=== PATIENT | male | born 1950 | race Caucasian/White ===

== ENCOUNTER → 2017-08-31 | Outpatient (CLI) | payer MEDICARE | LOC: RADMRIMAIN 06:52 | PROVIDERS: ATTEND Orthopaedic Surgery | DX: M25.561 Pain in right knee (principal); Z53.9 Procedure and treatment not carried out, unspecified reason ==

== ENCOUNTER → 2017-09-11 | Outpatient (CLI) | payer OTHER ==
--- NOTE | 2017-09-11 07:22 | MR ---
EXAMINATION TYPE: MR knee RT wo con DATE OF EXAM: 09/11/2017 6:49 AM COMPARISON: NONE HISTORY: Right knee pain TECHNIQUE: Multiplanar, multisequence imaging of the right is performed. FINDINGS: MEDIAL MENISCUS: Anterior and posterior horns are intact without tear. Increased signal posterior hor n medial meniscus may reflect myxoid degeneration. LATERAL MENISCUS: Anterior and posterior horns are intact without tear. CRUCIATE LIGAMENTS: The anterior and posterior cruciate ligaments are intact and unremarkable. COLLATERAL LIGAMENTS: The medial collateral ligament and lateral collateral ligament complex are intact and unremarkable. EXTENSOR MECHANISM: Visualized quadriceps and patellar tendons are intact. EFFUSION: No evidence for joint effusion. POPLITEAL CYST: No popliteal/ellis cyst. TRICOMPARTMENT SPACES: The tricompartment joint spaces appear within normal limits. CARTILAGE: Mild cartilaginous thinning lateral femoral condylar region. The articular cartilage is ma intained without abnormal signal or full-thickness defect. BONE MARROW SIGNAL: Increased bone marrow signal lateral femoral condyle and subchondral regions with cystic changes seen in degenerative in nature. OTHER: No additional significant abnormality is appreciated. IMPRESSION: 1. Myxoid degeneration posterior horn medial meniscus. 2. Subchondral cyst formation and increased bone marrow signal likely reflecting edema medial femoral condyle
== END | disposition home or self-care (01) ==
LOC: RADMRIMAIN 06:11
PROVIDERS: ATTEND Orthopaedic Surgery
DX: S83.241A Other tear of medial meniscus, current injury, right knee, initial encounter (principal); M25.861 Other specified joint disorders, right knee

== ENCOUNTER 2018-02-05 08:36 | Day surgery (SDC) | payer MEDICARE ==
[2018-02-01 16:04] VITALS: BMI 34.4
--- NOTE | 2018-02-04 10:01 | HP ---
HISTORY AND PHYSICAL CHIEF COMPLAINT: Right knee pain. HISTORY OF PRESENT ILLNESS: The patient is a 68-year-old retired gentleman who presents with progressive right knee pain after a previous twisting injury. He notes pain with weightbearing activities that limit him. He has swelling and stiffness as well. He has tried an injection along with rest and medications with only partial temporary relief. PAST MEDICAL HISTORY: Significant for type 2 diabetes, hypercholesterolemia, hypertension, arthritis, and neuropathy. PAST SURGICAL HISTORY: Significant for right knee arthroscopy. CURRENT MEDICATIONS: 1. Amitriptyline. 2. Amlodipine. 3. Aspirin. 4. Atorvastatin. 5. Glipizide. 6. Gabapentin. 7. Losartan. 8. Metoprolol. 9. Insulin. He denies drug allergies. FAMILY HISTORY: Significant for heart disease. SOCIAL HISTORY: Negative for current tobacco or alcohol use. 16 POINT REVIEW OF SYSTEMS: Otherwise reviewed and is noncontributory. PHYSICAL EXAMINATION: On examination, the patient is approximately 5 foot 10, 240 pounds of endomorphic habitus. HEENT exam is nonfocal. Neck is supple. He has painless passive motion of his left hip. Straight leg raise is negative. Active motion of left knee -14 to 105 degrees of flexion. He has a mild effusion. He is tender about the medial joint line. Collaterals are stable, Smiley's negative, Valentín's elicits medial pain. His distal neurovascular exam appears intact in the left lower extremity. MRI report left knee shows increased signal involving the posterior horn of the medial meniscus. Previous x-rays show moderate tricompartmental osteoarthrosis. IMPRESSION: 1. Internal derangement of left knee with probable medial meniscal tear-symptomatic. 2. Left knee moderate tricompartmental osteoarthrosis. 3. Neuropathy. 4. Insulin-dependent diabetes. RECOMMENDATIONS: I talked to the patient at length regarding his condition and treatment options. At this point he is quite symptomatic, having pain and mechanical symptoms despite conservative measures. After thorough discussion, he opts to proceed with surgery. We will plan to proceed with arthroscopic evaluation with possible partial medial meniscectomy versus medial femoral chondrectomy. Risks and benefits were discussed at length in layman's terms. MMODL / IJN: [id number] /
[~2018-02-05 08:36] MED LIST: LACTATED RINGERS 1,000 ML IV SCH; LIDOCAINE 1% 20 ML VIAL (10MG/ML) FOR IV START INTRADERMA PRN; ONDANSETRON 4 MG/2 ML VIAL IVP ONE; ceFAZolin IN SWFI 2 GM/20 ML SYRINGE IVP ONE
[2018-02-05 09:25] LABS: Glucose,Whole Blood 149 mg/dL (75-99)
[2018-02-05] MEDS ORDERED: ePHEDrine SULFATE/0.9% NACL/PF 50 MG/5 ML SYRINGE IV ONE (09:28)
[2018-02-05] MEDS ORDERED: MIDAZOLAM 2 MG/2 ML VIAL ONE (09:28)
[2018-02-05] MEDS ORDERED: PROPOFOL 10 MG/ML 20 ML VIAL IV ONE (09:28)
[2018-02-05] MEDS ORDERED: fentaNYL (PF) 50 MCG/ML 2 ML AMP ONE (09:28)
[2018-02-05] MEDS ORDERED: PHENYLEPHRINE-0.9% NACL SYG 1 MG/10 ML SYRINGE ONE (09:28)
[2018-02-05] MEDS ORDERED: SUCCINYLCHOLINE CHLORIDE 100 MG/5 ML SYR IV ONE (09:28)
[2018-02-05] MEDS ORDERED: LIDOCAINE 1% INJ 10MG/ML (20 ML MDV) ONE (09:28)
--- NOTE | 2018-02-05 09:28 | P.HPOR ---
History of Present Illness H&P Date: 02/05/18 Chief Complaint: Left knee pain As per previous history and physical. There was an error on the previous dictation, the left knee is the correct knee and the history and physical portion of the dictation. Past Medical History Past Medical History: Cancer, Diabetes Mellitus, Hypertension, Skin Disorder Additional Past Medical History / Comment(s): FOWLER'S ESOPHAGUS, DIABETIC NEUROPATHY PROSPER LEGS, constipation, "scalp infection", hx skin cancer, balance problems due to neuropathy, not bearing wt on left leg History of Any Multi-Drug Resistant Organisms: None Reported Past Surgical History: Bariatric Surgery, Orthopedic Surgery, Tonsillectomy Additional Past Surgical History / Comment(s): ARTHROSCOPY RT KNEE, lap band surgery, prosper cataracts, surgery to repair tendon left foot Past Anesthesia/Blood Transfusion Reactions: No Reported Reaction Smoking Status: Never smoker - Past Family History Mother Family Medical History: No Reported History Medications and Allergies Home Medications Medication Instructions Recorded Confirmed Type Amitriptyline HCl 25 mg PO HS 02/08/15 02/05/18 History Aspirin 81 mg PO DAILY 02/08/15 02/05/18 History Gabapentin 800 mg PO QID 02/08/15 02/05/18 History Metoprolol Succinate 25 mg PO QAM 02/08/15 02/05/18 History amLODIPine BESYLATE [Amlodipine 5 mg PO QAM 02/08/15 02/05/18 History Besylate] Atorvastatin [Lipitor] 20 mg PO HS 02/01/18 02/05/18 History Cholecalciferol [Vitamin D3] 1,000 unit PO DAILY 02/01/18 02/05/18 History INSULIN LISPRO (For Pump) [humaLOG 0.01 units SQ-PUMP CONTINUOUS 02/01/18 History (For Pump)] Losartan [Cozaar] 50 mg PO HS 02/01/18 02/05/18 History Minocycline HCl [Minocin] 50 mg PO 1200 02/01/18 02/05/18 History glipiZIDE XL [Glucotrol Xl] 10 mg PO HS 02/01/18 02/05/18 History Allergies Allergy/AdvReac Type Severity Reaction Status Date / Time No Known Allergies Allergy Verified 02/05/18 09:02 Results - Labs Labs: Abnormal Lab Results - Last 24 Hours (Table) 02/05/18 Range/Units 09:05 POC Glucose (mg/dL) 149 H (75-99) mg/dL Assessment and Plan Assessment: Left knee internal derangement Plan: Proceed with left knee arthroscopy was planned
[2018-02-05] MEDS ORDERED: EPINEPHrine (PF) 1 ML in SODIUM CHLORIDE 0.9% IRRIGATIO 3,000 ML IRRIGATION ONE ×4 (09:54)
--- NOTE | 2018-02-05 10:38 | P.OP ---
Date of Procedure: 02/05/18 Preoperative Diagnosis: Left knee internal derangement Postoperative Diagnosis: Left knee posterior medial meniscal tear/posterior lateral meniscal tear/large patellofemoral plica Procedure(s) Performed: Left knee arthroscopic partial medial meniscectomy/partial lateral meniscectomy/ plica resection Anesthesia: JORDANA Surgeon: Buddy Escamilla Estimated Blood Loss (ml): 10 Pathology: none sent Condition: stable Disposition: PACU Indications for Procedure: The patient is a 68-year-old male who presents with progressive left knee pain and mechanical symptoms despite conservative measures. A discussion of the risks and benefits of operative intervention versus continued conservative measures was made with patient. He opted to proceed with surgery. Operative risks to include infection, neurovascular injury, development of blood clots, possible incomplete resolution of symptoms, possible worsening symptoms and need for subsequent procedures was discussed. Informed consent was obtained. Operative Findings: As below Description of Procedure: The patient was brought to the operating room, and after induction of general anesthesia examined the left knee. Collaterals were stable, Smiley was negative, and posterior drawer was negative. The left lower extremity was prepped and draped in normal fashion. A superior lateral portal was made through a 3 mm skin incision superior and lateral to the patella. A moderate effusion was encountered. A lateral portal was made through a 5 mm vertical skin incision lateral to the patella tendon above the joint line. Diagnostic arthroscopy was performed. A medial portal was made through a similar incision medial to the patella tendon above the joint line. On inspection of the medial compartment, he is noted have an oblique tear involving the posterior horn of the medial meniscus in the white-white junction. This was debrided back to stable base with straight baskets and a motorized shaver. Grade 2 chondral changes were noted diffusely in the medial compartment. On inspection of the notch, the anterior cruciate ligament appeared to be intact. On inspection the lateral compartment, and oblique tear involving the posterior aspect of the lateral meniscus in the white-white junction was noted. This was debrided back to stable base with straight baskets and a motorized shaver. The edges were contoured. The remaining lateral meniscus was stable and intact. On inspection patellofemoral articulation, there was grade 2-3 chondral changes diffusely. A large medial patellofemoral plica was noted that impinged on the medial femoral condyle. This was debrided with a motorized shaver. The gutters were clear debris. The knee was then thoroughly irrigated. The portals were closed with Steri-Strips. A sterile dressing was applied in addition to a compression stocking. The patient was awoken from general anesthesia and transferred to recovery room in good condition. Blood loss was estimated at 10 mL. No complications were incurred.
[2018-02-05 10:49] VITALS: TEMP 97.1
[2018-02-05] MEDS ORDERED: KETOROLAC 30 MG/ML 1 ML VIAL IVP ONE (10:49)
[2018-02-05] MEDS: HYDROmorphone 0.5 MG/0.5 ML SYRINGE IVP PRN ×2 (11:04→11:10)
[2018-02-05 11:58] LABS: Glucose,Whole Blood 161 mg/dL (75-99)
[2018-02-05] MEDS ORDERED: HYDROcodone/APAP 5-325MG 1 EACH TAB PO ONE (12:02)
[2018-02-05 12:21] VITALS: RESP 16
[2018-02-05 13:33] VITALS: BP 110/59; PULSE 60
== END 2018-02-05 13:32 | disposition home or self-care (01) ==
LOC: OR 08:36
PROVIDERS: ATTEND Orthopaedic Surgery
DX: S83.242A Other tear of medial meniscus, current injury, left knee, initial encounter (principal); S83.282A Other tear of lateral meniscus, current injury, left knee, initial encounter; X50.1XXA Overexertion from prolonged static or awkward postures, initial encounter; M67.52 Plica syndrome, left knee; Z85.828 Personal history of other malignant neoplasm of skin; E11.42 Type 2 diabetes mellitus with diabetic polyneuropathy; Z79.4 Long term (current) use of insulin; Z96.41 Presence of insulin pump (external) (internal); E78.00 Pure hypercholesterolemia, unspecified; M19.90 Unspecified osteoarthritis, unspecified site; I10 Essential (primary) hypertension; L08.9 Local infection of the skin and subcutaneous tissue, unspecified; Z79.2 Long term (current) use of antibiotics; Z79.82 Long term (current) use of aspirin; Z79.899 Other long term (current) drug therapy; Z98.84 Bariatric surgery status
CPT/HCPCS: 29880; J2250; J2405; J0171; J2001; J3010; J1885; J2370; J0330; J2704; J1170; J0690

== ENCOUNTER → 2019-05-09 | Outpatient (CLI) | payer MEDICARE ==
[~2019-05-09] MED LIST changes: -LACTATED RINGERS 1,000 ML IV SCH; -LIDOCAINE 1% 20 ML VIAL (10MG/ML) FOR IV START INTRADERMA PRN; -ONDANSETRON 4 MG/2 ML VIAL IVP ONE; +REGADENOSON 0.4 MG/5 ML SYRINGE IV ONE; -ceFAZolin IN SWFI 2 GM/20 ML SYRINGE IVP ONE
--- NOTE | 2019-05-09 12:51 | NM ---
EXAMINATION TYPE: NM stress lexiscan cardiolite DATE OF EXAM: 05/09/2019 COMPARISON: NONE HISTORY: Chest pain TECHNIQUE: After the intravenous administration of 9.5 mCi Tc 99m Sestamibi - Cardiolite resting SPE CT images acquired 60 minutes post injection. The patient received 0.4mg Lexiscan, 26.3 mCi Tc 99m Sestamibi - Stress images obtained [address] injection FINDINGS: Review of stress and rest SPECT images demonstrates no distinct perfusion abnormality. Gated analysi s shows normal wall motion with an estimated left ventricular ejection fraction of 60 %. IMPRESSION: No scintigraphic evidence for reversible ischemia.
--- NOTE | 2019-05-09 13:30 | EST ---
EXERCISE STRESS DATE OF SERVICE: 05/09/2019 AGE: 69 SEX: Male HT: 5'10" WT: 240 pounds PROTOCOL: Lexiscan Cardiolite STAGE: DURATION OF EXERCISE: HEART RATE REST: 55 BLOOD PRESSURE REST: 128/82 MAXIMUM HEART RATE ACHIEVED: 71 MAXIMUM BLOOD PRESSURE: 129/71 85% MPHR: 128 100% MPHR: 151 METS: INDICATIONS: CLINICAL INFORMATION: Baseline rhythm is sinus mechanism, rate 55, normal axis and intervals, minor nonspecific ST-T wave changes, QS in lead 3. Baseline blood pressure 128/82 mmHg. Patient received an injection of Lexiscan. Electrocardiograph monitoring revealed no evidence of diagnostic ischemic ST deviation. Cardiolite was injected per protocol. CONCLUSION: 1. Nondiagnostic electrocardiograph stress testing. 2. Nuclear images will be reported separately. MMODL / IJN: [id number] /
== END | disposition home or self-care (01) ==
LOC: RADNMMAIN 08:39
PROVIDERS: ATTEND Family Medicine
DX: Z82.49 Family history of ischemic heart disease and other diseases of the circulatory system (principal)
CPT/HCPCS: 93017; 78452; A9500; J2785

== ENCOUNTER → 2019-05-18 | Outpatient (CLI) | payer MEDICARE ==
--- NOTE | 2019-05-18 16:39 | US ---
EXAMINATION TYPE: US duplex aorta DATE OF EXAM: 05/18/2019 COMPARISON: NONE CLINICAL HISTORY: Z13.6 Screening AAA. no symptoms or family history EXAM MEASUREMENTS: Abdominal Aorta: Proximal: not seen due to bowel gas Mid: not seen due to bowel gas Distal: 1.8 x 2.0cm Bifurcation: 1.1cm 0.9cm Limited exam due to bowel gas IMPRESSION: 1. Limited examination due to bowel gas. Proximal and mid abdominal aorta cannot be evaluated.
== END | disposition home or self-care (01) ==
LOC: RADUSWWP 09:06
PROVIDERS: ATTEND Family Medicine
DX: Z13.6 Encounter for screening for cardiovascular disorders (principal); R14.3 Flatulence
CPT/HCPCS: 93979

== ENCOUNTER → 2022-10-08 | Outpatient (CLI) | payer MEDICARE ==
[2022-10-08 15:28] LABS: ALT 20 U/L (10-49); AST 19 U/L (14-35); African American GFR (CKD) 99.2 (60.0-200.0); Albumin 4.3 g/dL (3.8-4.9); Albumin/Globulin Ratio 2.15 (1.60-3.17); Alkaline Phosphatase 66 U/L (41-126); BUN/Creat Ratio 11.11 Ratio (12.00-20.00); Blood Urea Nitrogen 9.8 mg/dL (9.0-27.0); Calcium 9.6 mg/dL (8.7-10.3); Carbon Dioxide 27.9 mmol/L (20.0-27.5); Chloride 105 mmol/L (96-109); Chol/HDL Ratio 4.25 Ratio; Glucose 117 mg/dL (70-110); LDL Cholesterol,Calculated 93.2 mg/dL (0.0-131.0); Non-African American GFR(CKD) 85.6 (60.0-200.0); Potassium 5.3 mmol/L (3.5-5.5); Sodium 142 mmol/L (135-145); Total Protein 6.2 g/dL (6.2-8.2)
[2022-10-08 20:28] LABS: Urine Creatinine 83.4 mg/dL (39.0-259.0)
== END | disposition home or self-care (01) ==
LOC: LABWHC1 09:35
PROVIDERS: ATTEND Internal Medicine Endocrinology, Diabetes & Metabolism
DX: E11.65 Type 2 diabetes mellitus with hyperglycemia (principal)
CPT/HCPCS: 36415; 80053; 80061; 82043; 82570; 83036; 84443